=== PATIENT | female | born 1960 | race Hispanic/Latino ===

== ENCOUNTER 2018-06-18 13:18 | Emergency (ER) | payer OTHER, SELFPAY ==
[~2018-06-18 13:18] MED LIST: CEPH-578 PO
[2018-06-18] MEDS ORDERED: KETOROLAC TROMETHAMINE 30MG/ML ONE (14:42)
[2018-06-18 14:57] LABS: APPEARANCE,URINE Clear (CLEAR); BASOPHILS % (AUTO) 0.5 % (0.0-5.0); BILIRUBIN,URINE Negative (NEGATIVE); COLOR,URINE Yellow (YELLOW); EOSINOPHILS % (AUTO) 1.2 % (0.0-8.0); GLUCOSE, URINE (UA) Negative (NEGATIVE); HEMATOCRIT 43.1 % (36-48); KETONES,URINE Negative (NEGATIVE); LEUKOCYTE ESTERASE ,URINE Negative (NEGATIVE); LYMPHOCYTES % (AUTO) 13.9 % (21.0-51.0); MEAN CORPUSCULAR HEMOGLOBIN 28.3 pg (27.0-33.0); MEAN CORPUSCULAR HGB CONC 32.7 g/dL (32.0-36.0); MEAN CORPUSCULAR VOLUME 86.8 fL (79-99); MONOCYTES % (AUTO) 6.6 % (3.0-13.0); NEUTROPHILS % (AUTO) 77.8 % (40.0-77.0); NITRATE,URINE Negative (NEGATIVE); OCCULT BLOOD,URINE Negative (NEGATIVE); PLATELET COUNT (AUTO) 178 K/uL (130-400); PROTEIN,URINE Negative (NEGATIVE); RED BLOOD CELL COUNT(AUTO) 4.96 MIL/uL (4.00-5.50); RED CELL DISTRIBUTION WIDTH 14.2 % (11.0-15.5); UROBILINOGEN,URINE 0.2 mg/dL (0.2-1.0); WHITE BLOOD COUNT (AUTO) 10.4 K/uL (4.8-10.8)
[2018-06-18 15:04] LABS: CREATININE 0.7 mg/dL (0.5-1.5)
[2018-06-18 15:09] LABS: ALBUMIN 3.7 g/dL (3.5-5.0); BILIRUBIN,TOTAL 0.4 mg/dL (0.2-1.0)
[2018-06-18 15:19] LABS: TOTAL PROTEIN, SERUM 8.5 g/dL (6.0-8.3)
[2018-06-18] MEDS ORDERED: CYCLOBENZAPRINE HCL 10 MG TABLET ONE (16:42)
== END 2018-06-18 17:07 | disposition home or self-care (01) ==
LOC: EDH 13:18
DX: M62.830 Muscle spasm of back (principal); M54.6 Pain in thoracic spine; I10 Essential (primary) hypertension; Z98.51 Tubal ligation status
CPT/HCPCS: 36415; 71045; 80053; 81003; 85025; 87804 ×2; 96374; 99284; J1885

== ENCOUNTER 2019-06-29 12:24 | Emergency (ER) | payer OTHER, SELFPAY ==
[2019-06-29 12:57] LABS: APPEARANCE,URINE Clear (CLEAR); BILIRUBIN,URINE Negative (NEGATIVE); COLOR,URINE Yellow (YELLOW); GLUCOSE, URINE (UA) Negative (NEGATIVE); KETONES,URINE Negative (NEGATIVE); LEUKOCYTE ESTERASE ,URINE Small (NEGATIVE); NITRATE,URINE Negative (NEGATIVE); OCCULT BLOOD,URINE Negative (NEGATIVE); PROTEIN,URINE Negative (NEGATIVE)
[2019-06-29 12:59] LABS: BASOPHILS % (AUTO) 0.5 % (0.0-5.0); EOSINOPHILS % (AUTO) 1.4 % (0.0-8.0); HEMATOCRIT 42.7 % (36-48); LYMPHOCYTES % (AUTO) 25.6 % (21.0-51.0); MEAN CORPUSCULAR HEMOGLOBIN 27.8 pg (27.0-33.0); MEAN CORPUSCULAR HGB CONC 31.9 g/dL (32.0-36.0); MEAN CORPUSCULAR VOLUME 87.1 fL (79-99); MONOCYTES % (AUTO) 6.8 % (3.0-13.0); PLATELET COUNT (AUTO) 200 K/uL (130-400); RED CELL DISTRIBUTION WIDTH 13.7 % (11.0-15.5); WHITE BLOOD COUNT (AUTO) 9.9 K/uL (4.8-10.8)
[2019-06-29 12:59] LABS: BACTERIA,URINE Rare /HPF (None Seen); RBC,URINE 0-1 /HPF (0-1); SQUAMOUS EPITHELIAL CELL,UR Rare /HPF (0-2); WBC,URINE 0-1 /HPF (0-1)
[2019-06-29 13:06] LABS: CREATININE 0.7 mg/dL (0.5-1.5); POTASSIUM 3.8 mmol/L (3.5-5.1)
[2019-06-29 13:09] LABS: INR 0.93 (0.85-1.15); PARTIAL THROMBOPLASTIN TIME 26.5 SEC (26.3-35.5); PROTHROMBIN TIME 9.8 SEC (9.6-11.6)
[2019-06-29 13:12] LABS: ALBUMIN 3.5 g/dL (3.5-5.0); BILIRUBIN,TOTAL 0.3 mg/dL (0.2-1.0); TOTAL PROTEIN, SERUM 8.4 g/dL (6.0-8.3)
[2019-06-29] MEDS ORDERED: CLONIDINE HCL 0.1 MG TABLET ONE (13:44)
== END 2019-06-29 15:39 | disposition home or self-care (01) ==
LOC: EDH 12:24
DX: I10 Essential (primary) hypertension (principal)
CPT/HCPCS: 36415; 71045; 80053; 81001; 82550; 83880; 84484; 85025; 85610; 85730; 93005

== ENCOUNTER 2022-09-04 20:24 | Inpatient (IN) | payer OTHER ==
[~2022-09-04] VITALS: Ht 152.4 cm; Wt 89.4 kg
[2022-09-04 20:50] LABS: BASOPHILS % (AUTO) 0.4 % (0.0-5.0); EOSINOPHILS % (AUTO) 0.5 % (0.0-8.0); HEMATOCRIT 41.7 % (36-48); LYMPHOCYTES % (AUTO) 9.7 % (21.0-51.0); MEAN CORPUSCULAR HEMOGLOBIN 28.9 pg (27.0-33.0); MEAN CORPUSCULAR HGB CONC 32.6 g/dL (32.0-36.0); MEAN CORPUSCULAR VOLUME 88.5 fL (79-99); MONOCYTES % (AUTO) 5.5 % (3.0-13.0); NEUTROPHILS % (AUTO) 83.3 % (40.0-77.0); PLATELET COUNT (AUTO) 175 K/uL (130-400); RED BLOOD CELL COUNT(AUTO) 4.71 MIL/uL (4.00-5.50); RED CELL DISTRIBUTION WIDTH 13.5 % (11.0-15.5); WHITE BLOOD COUNT (AUTO) 19.6 K/uL (4.8-10.8)
[2022-09-04 21:04] LABS: POTASSIUM 4.2 mmol/L (3.5-5.1)
[2022-09-04 21:08] LABS: ALBUMIN 3.6 g/dL (3.5-5.0); TOTAL PROTEIN, SERUM 8.1 g/dL (6.0-8.3)
[2022-09-04 21:54] LABS: APPEARANCE,URINE CLEAR (CLEAR); BILIRUBIN,URINE NEGATIVE (NEGATIVE); COLOR,URINE LIGHT-YELLOW (YELLOW); GLUCOSE, URINE (UA) NEGATIVE (NEGATIVE); KETONES,URINE NEGATIVE (NEGATIVE); LEUKOCYTE ESTERASE ,URINE NEGATIVE Leu/uL (NEGATIVE); NITRATE,URINE NEGATIVE (NEGATIVE); OCCULT BLOOD,URINE NEGATIVE (NEGATIVE); PH,URINE 5.5 (5.0-8.0); PROTEIN,URINE NEGATIVE (NEGATIVE); UROBILINOGEN,URINE 0.2 mg/dL (0.2-1.0)
[2022-09-04 21:59] LABS: BACTERIA,URINE RARE /HPF (None Seen); MUCUS,URINE RARE LPF (None Seen); RBC,URINE 0-1 /HPF (0-1); SQUAMOUS EPITHELIAL CELL,UR RARE /HPF (0-2)
[2022-09-04] MEDS ORDERED: IOHEXOL 350 MG/ML 100ML INFUS..BTL IV ONE (21:59)
[2022-09-04] MEDS ORDERED: 0.9%NACL 1000ML 1,000 ML IV ONE (22:00)
[2022-09-04] MEDS ORDERED: ZOSYN 3.375GM +NS 50ML IVPB ONE (22:00)
[2022-09-04] MEDS ORDERED: MORPHINE 2 MG SYG IV PRN (23:30)
[2022-09-04] MEDS ORDERED: ACETAMINOPHEN 325 MG TAB PO PRN ×2 (23:30)
[2022-09-04] MEDS ORDERED: MORPHINE 4 MG SYG IV PRN (23:30)
[2022-09-04] MEDS ORDERED: ONDANSETRON 4MG INJ IV PRN (23:30)
[2022-09-05] VITALS (26 sets, daily range): BP systolic 123–158; BP diastolic 67–86
[2022-09-05] MEDS: LACTATED RINGERS 1000ML 1,000 ML IV SCH ×2 (00:48→20:48)
[2022-09-05] MEDS ORDERED: LOSA25TA41 PO (03:36)
[2022-09-05] MEDS: ZOSYN 3.375GM+NS 50ML 50 ML IVPB SCH ×3 (04:39→20:44)
[2022-09-05 06:40] LABS: BASOPHILS % (AUTO) 0.2 % (0.0-5.0); EOSINOPHILS % (AUTO) 0.9 % (0.0-8.0); HEMATOCRIT 38.3 % (36-48); LYMPHOCYTES % (AUTO) 19.9 % (21.0-51.0); MEAN CORPUSCULAR HGB CONC 31.9 g/dL (32.0-36.0); MONOCYTES % (AUTO) 6.9 % (3.0-13.0); NEUTROPHILS % (AUTO) 71.7 % (40.0-77.0); PLATELET COUNT (AUTO) 177 K/uL (130-400); RED BLOOD CELL COUNT(AUTO) 4.35 MIL/uL (4.00-5.50); RED CELL DISTRIBUTION WIDTH 13.6 % (11.0-15.5); WHITE BLOOD COUNT (AUTO) 13.5 K/uL (4.8-10.8)
[2022-09-05 06:57] LABS: CREATININE 0.8 mg/dL (0.5-1.5); MAGNESIUM 2.3 mg/dL (1.80-2.40); PHOSPHORUS 3.3 mg/dL (2.5-4.9)
[2022-09-05] MEDS ORDERED: ENOXAPARIN SODIUM 40 MG/0.4 ML SYRINGE SQ SCH (09:00)
[2022-09-05] MEDS: FAMOTIDINE 20MG VIAL IV SCH ×2 (09:58→20:44)
[2022-09-05] MEDS ORDERED: ONDANSETRON 4MG INJ ONE (17:10)
[2022-09-05] MEDS ORDERED: PROPOFOL 10 MG/ML 20ML VIAL IV ONE ×2 (17:10→17:34)
[2022-09-05] MEDS ORDERED: ROCURONIUM 10MG/1ML SYR 10 MG/ML ML ONE (17:10)
[2022-09-05] MEDS ORDERED: FENTANYL CITRATE PF 50 MCG/1 ML 2ML VIAL ONE ×3 (17:10→19:02)
[2022-09-05] MEDS ORDERED: MIDAZOLAM HCL 1 MG/ML 2ML VIAL ONE (17:11)
[2022-09-05] MEDS ORDERED: MEPERIDINE-PF 25 MG/ML SYG ONE ×2 (18:10→19:10)
[2022-09-05] MEDS ORDERED: NEOSTIGMINE 5MG/5ML SYR IV ONE (18:17)
[2022-09-05] MEDS ORDERED: GLYCOPYRROLATE 1 MG/5 ML SYRINGE ONE (18:17)
[2022-09-05] MEDS ORDERED: EPHEDRINE SULFATE 50 MG/ML AMPULE ONE (18:19)
[2022-09-05] MEDS: LOSARTAN 25 MG TABLET PO SCH (21:00)
[2022-09-06 00:30] VITALS: BP 134/79
[2022-09-06 01:30] VITALS: BP 136/71
[2022-09-06 04:08] VITALS: BP 134/74
[2022-09-06] MEDS: ZOSYN 3.375GM+NS 50ML 50 ML IVPB SCH ×2 (04:44→13:00)
[2022-09-06] MEDS: LACTATED RINGERS 1000ML 1,000 ML IV SCH (04:45)
[2022-09-06 05:51] LABS: HEMATOCRIT 38.9 % (36-48); MEAN CORPUSCULAR HEMOGLOBIN 28.4 pg (27.0-33.0); MEAN CORPUSCULAR HGB CONC 31.9 g/dL (32.0-36.0); MEAN CORPUSCULAR VOLUME 89.2 fL (79-99); RED BLOOD CELL COUNT(AUTO) 4.36 MIL/uL (4.00-5.50); RED CELL DISTRIBUTION WIDTH 13.5 % (11.0-15.5); WHITE BLOOD COUNT (AUTO) 9.3 K/uL (4.8-10.8)
[2022-09-06 06:05] LABS: CREATININE 0.8 mg/dL (0.5-1.5); POTASSIUM 3.6 mmol/L (3.5-5.1)
[2022-09-06 08:00] VITALS: BP 167/105
[2022-09-06] MEDS: LOSARTAN 25 MG TABLET PO SCH (09:16)
[2022-09-06] MEDS: GABAPENTIN 100 MG CAPSULE PO SCH ×2 (09:16→15:09)
[2022-09-06] MEDS: KETOROLAC 15MG/ML VIAL (15MG/ML) IV PRN ×2 (09:16→15:09)
[2022-09-06] MEDS: FAMOTIDINE 20MG VIAL IV SCH (09:16)
[2022-09-06 12:00] VITALS: BP 135/69
[2022-09-06 16:00] VITALS: BP 131/76
== END 2022-09-06 18:55 | disposition home or self-care (01) | DRG 343 ==
LOC: EDH 20:24 → EDHIP 20:25 → 4CH 09-05 03:09
PROVIDERS: ADMIT Internal Medicine; ATTEND Internal Medicine
PROC: 0DTJ4ZZ Resection of Appendix, Percutaneous Endoscopic Approach (ICD-10-PCS; principal; 2022-09-05 17:25)
DX: K35.80 Unspecified acute appendicitis (principal); I10 Essential (primary) hypertension; Z98.51 Tubal ligation status; E66.09 Other obesity due to excess calories; Z68.38 Body mass index [BMI] 38.0-38.9, adult
CPT/HCPCS: 36415; 74177; 80048; 80053; 81001; 83605; 83690; 83735; 84100; 85025; 85027; 86850; 86900; 86901; 87040; 87635; 93005; G0378; J1885; J2175; J2250; J2405; J2543; J2704; J2710; J3010; J3490; J7030; J7120; Q9967